=== PATIENT | female | born 1970 | race Caucasian/White ===

== ENCOUNTER 2017-01-15 19:43 | Emergency (ER) | payer MEDICAID ==
[~2017-01-15] VITALS: Ht 152.4 cm; Wt 87.1 kg
[2017-01-15 21:34] VITALS: BP 142/80
== END 2017-01-15 22:56 | disposition home or self-care (01) ==
LOC: ER 19:45
DX: S93.602A Unspecified sprain of left foot, initial encounter (principal); J45.909 Unspecified asthma, uncomplicated; J44.9 Chronic obstructive pulmonary disease, unspecified; Z88.0 Allergy status to penicillin; Z88.1 Allergy status to other antibiotic agents; Z88.2 Allergy status to sulfonamides; Z88.6 Allergy status to analgesic agent; Z88.8 Allergy status to other drugs, medicaments and biological substances; X58.XXXA Exposure to other specified factors, initial encounter; Y93.01 Activity, walking, marching and hiking; Y99.8 Other external cause status; Y92.89 Other specified places as the place of occurrence of the external cause
CPT/HCPCS: 73630

== ENCOUNTER 2017-10-19 14:08 | Emergency (ER) | payer MEDICAID ==
[~2017-10-19] VITALS: Ht 152.4 cm; Wt 88.9 kg
[2017-10-19] MEDS ORDERED: KETOROLAC TROMETH 60MG/2ML VIAL IM ONE (15:30)
[2017-10-19 17:26] VITALS: BP 141/88
== END 2017-10-19 17:31 | disposition home or self-care (01) ==
LOC: ER 14:08
DX: M54.5 Low back pain (principal); M79.1 Myalgia; R06.02 Shortness of breath; J44.9 Chronic obstructive pulmonary disease, unspecified; Z88.6 Allergy status to analgesic agent; Z88.8 Allergy status to other drugs, medicaments and biological substances; Z88.0 Allergy status to penicillin
CPT/HCPCS: 71101; 96372; 99284; J1885

== ENCOUNTER 2017-10-20 13:34 | Emergency (ER) | payer MEDICAID ==
[~2017-10-20] VITALS: Ht 152.4 cm; Wt 88.9 kg
[2017-10-20 14:53] VITALS: BP 128/82
[2017-10-20] MEDS ORDERED: methylPREDNISolone SOD SUCC 125 MG/2 ML VL IM ONE (15:15)
[2017-10-20] MEDS ORDERED: ONDANSETRON ODT 4 MG TAB PO ONE (15:15)
== END 2017-10-20 15:55 | disposition home or self-care (01) ==
LOC: ER 13:34
DX: T78.40XA Allergy, unspecified, initial encounter (principal); J44.9 Chronic obstructive pulmonary disease, unspecified; Z88.6 Allergy status to analgesic agent; Z88.0 Allergy status to penicillin; Z88.2 Allergy status to sulfonamides; Z88.1 Allergy status to other antibiotic agents
CPT/HCPCS: 96372; 99283; J2930; Q0162

== ENCOUNTER 2018-09-27 12:53 | Emergency (ER) | payer MEDICAID ==
[~2018-09-27] VITALS: Ht 152.4 cm; Wt 89.8 kg
[2018-09-27 16:00] VITALS: BP 160/82
== END 2018-09-27 16:07 | disposition home or self-care (01) ==
LOC: ER 13:02
DX: M48.07 Spinal stenosis, lumbosacral region (principal); J44.9 Chronic obstructive pulmonary disease, unspecified; Z90.710 Acquired absence of both cervix and uterus; Z88.0 Allergy status to penicillin; Z88.1 Allergy status to other antibiotic agents; Z88.2 Allergy status to sulfonamides; Z88.6 Allergy status to analgesic agent; Z88.8 Allergy status to other drugs, medicaments and biological substances
CPT/HCPCS: 70450; 72128; 72131

== ENCOUNTER 2021-07-05 14:47 | Emergency (ER) | payer MEDICAID ==
[~2021-07-05] VITALS: Ht 152.4 cm; Wt 95.3 kg
[2021-07-05 16:05] VITALS: BP 147/75
[2021-07-05] MEDS ORDERED: IBUPROFEN 800 MG TAB PO ONE (16:45)
[2021-07-05] MEDS ORDERED: IBUP800T27 PO (17:04)
== END 2021-07-05 17:33 | disposition home or self-care (01) ==
LOC: ER 14:58
DX: S90.31XA Contusion of right foot, initial encounter (principal); J44.9 Chronic obstructive pulmonary disease, unspecified; Z90.710 Acquired absence of both cervix and uterus; Z79.1 Long term (current) use of non-steroidal anti-inflammatories (NSAID); Z88.0 Allergy status to penicillin; Z88.1 Allergy status to other antibiotic agents; Z88.2 Allergy status to sulfonamides; Z88.8 Allergy status to other drugs, medicaments and biological substances; Y92.89 Other specified places as the place of occurrence of the external cause; Y99.8 Other external cause status
CPT/HCPCS: 73630

== ENCOUNTER 2023-06-15 22:22 | Emergency (ER) | payer MEDICAID ==
[~2023-06-15] VITALS: Ht 152.4 cm; Wt 95.0 kg
[~2023-06-15 22:22] MED LIST: IBUP-1456 PO
[2023-06-15] MEDS ORDERED: IPRATROPIUM BROM 0.5 MG/2.5ML INH SOL NEB ONE (22:45)
[2023-06-15] MEDS ORDERED: ALBUTEROL SULF 2.5 MG/0.5ML(0.5%) NEB SOLN NEB ONE (22:45)
[2023-06-16] MEDS ORDERED: PROM1SOL4 PO (01:58)
[2023-06-16] MEDS ORDERED: PRED20TA2 PO (01:58)
[2023-06-16] MEDS ORDERED: ALBU108A5 IN (01:59)
[2023-06-16] MEDS ORDERED: ALBUTEROL SULF 2.5 MG/0.5ML(0.5%) NEB SOLN NEB ONE (02:00)
[2023-06-16] MEDS ORDERED: IPRATROPIUM BROM 0.5 MG/2.5ML INH SOL NEB ONE (02:00)
[2023-06-16] MEDS ORDERED: DexAMETHasone SOD PHOS 10MG/1ML VIAL INJ IM ONE (02:00)
[2023-06-16 02:22] VITALS: BP 154/82; PULSE 84; RESP 20; TEMP 97.8; O2SAT 97
== END 2023-06-16 02:42 | disposition home or self-care (01) ==
LOC: ER 22:22
DX: J40 Bronchitis, not specified as acute or chronic (principal); J44.9 Chronic obstructive pulmonary disease, unspecified; Z90.710 Acquired absence of both cervix and uterus
CPT/HCPCS: 71045; 94640; 96372; 99284; J1100; J7644

== ENCOUNTER 2024-11-05 06:17 | Emergency (ER) | payer OTHER, MEDICAID ==
[~2024-11-05] VITALS: Ht 152.4 cm; Wt 79.0 kg
[~2024-11-05 06:17] MED LIST changes: +ALBU108A5 IN; +PRED20TA2 PO; +PROM1SOL4 PO
--- NOTE | 2024-11-05 06:42 | ED.PDOC ---
History of Present Illness HPI Comments 54-year-old female presents to the ER with prior medical history of hypertension, asthma, COPD, diabetes; surgical history of x2, hysterectomy, hernia removal, carpal tunnel surgery with a chief complaint of shortness a breath/chest pain. Patient reports on having cough with productive yellow phlegm for the past three days. Whenever the patient breathes in, the patient coughs. Patient in triage had a saturation level of 97% room air. Denies chills, fever, N/V/D. No other associated symptoms, modifiers, recent injuries or sick contacts present at this time. Chief Complaint: Shortness of Breath Time Seen by MD: 06:30 Primary Care Provider: THONG BENAVIDEZ Reviewed Notes: Nurses Notes, Medications, Allergies Allergies: Coded Allergies: Acetaminophen (Verified Allergy, Severe, 06/10/14) Codeine (Verified Allergy, Severe, 06/10/14) Hydrocodone (Verified Allergy, Severe, 06/10/14) Clindamycin (Verified Allergy, Unknown, 10/04/14) Levofloxacin (Verified Allergy, Unknown, 10/04/14) Penicillins (Verified Allergy, Unknown, 02/08/14) Sulfa Antibiotics (Verified Allergy, Unknown, 02/08/14) Sulfamethoxazole w/Trimethoprim (Verified Allergy, Unknown, 02/08/14) Home Meds Active Scripts Levofloxacin Hemihydrate (LEVOFLOXACIN) 500 Mg Tab, 500 MG PO DAILY for 7 Days, #7 MG Prov:VLADIMIR MORRIS MD 11/05/24 Prednisone (Prednisone) 20 Mg Tab, 20 MG PO DAILY for 5 Days, #5 MG Prov:VLADIMIR MORRIS MD 11/05/24 Albuterol Sulfate (Albuterol Sulfate Hfa) 108 Mcg/Act Aer, 2 PUFF IN Q4HPRN PRN, #1 INHALER 0 Refills 2 puffs inhaled every 4-6 hours as needed for SOB/cough symptoms Prov:KRISTIN AVENDANO CONTRACT LAW SPECIALIST 06/16/23 Prednisone (Prednisone) 20 Mg Tab, 40 MG PO DAILY for 5 Days, #10 TAB 0 Refills Prov:KRISTIN AVENDANO CONTRACT LAW SPECIALIST 06/16/23 Promethazine-Dm (Promethazine Dm 6.25-15 mg/5Ml) 1 Malia Malia, 5 ML PO Q6HPRN PRN, #120 ML 0 Refills Prov:KRISTIN AVENDANO CONTRACT LAW SPECIALIST 06/16/23 Ibuprofen (Ibuprofen) 800 Mg Tab, 800 MG PO Q8HP PRN for 10 Days, #30 TAB Prov:ELDA JOSE 07/05/21 Information Source: Patient Mode of Arrival: Ambulatory Severity: Moderate Timing: Days Duration: Since onset, Days Prehospital treatment: None Past Medical History PAST MEDICAL HISTORY: Asthma, COPD, DM, HTN Surgical History: (X2), Hysterectomy Surgical History (Other): Hernia removal, carpal tunnel surgery 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 History Family History Family History: Reviewed,noncontributory to illness, Unknown, Family hx of lung teresa Social History Smoker: Non-Smoker Alcohol: Unknown Drugs: Denies Drug Use Lives In: Home Constitutional: denies: chills, diaphoresis, fatigue, fever, malaise, sweats, weakness, others EENTM: denies: blurred vision, double vision, ear bleeding, ear discharge, ear drainage, ear pain, ear ringing, eye pain, eye redness, hearing loss, mouth pain, mouth swelling, nasal discharge, nose bleeding, nose congestion, nose pain, photophobia, tearing, throat pain, throat swelling, voice changes, others Respiratory: reports: cough, SOB at rest, shortness of breath; denies: hemoptysis, orthopnea, SOB with excertion, stridor, wheezing, others Cardiovascular: denies: chest pain, dizzy spells, diaphoresis, Dyspnea on exertion, edema, irregular heart beat, left arm pain, lightheadedness, palpitations, PND, syncope, others Gastrointestinal: denies: abdomen distended, abdominal pain, blood streaked bowels, constipated, diarrhea, dysphagia, difficulty swallowing, hematemesis, melena, nausea, poor appetite, poor fluid intake, rectal bleeding, rectal pain, vomiting, others Genitourinary: denies: abnormal vagina bleeding, burning, dyspareunia, dysuria, flank pain, frequency, hematuria, incontinence, pain, , vagina discharge, urgency, others Neurological: denies: dizziness, fainting, headache, left sided numbness, left sided weakness, numbness, paresthesia, pre-existing deficit, right sided numbness, right sided weakness, seizure, speech problems, tingling, tremors, weakness, others Musculoskeletal: denies: back pain, gout, joint pain, joint swelling, muscle pain, muscle stiffness, neck pain, others Integumetry: denies: bruises, change in color, change in hair/nails, dryness, laceration, lesions, lumps, rash, wounds, others Allergic/Immunocompromised: denies: Difficulty Healing, Frequent Infections, Hives, Itching, others Hematologic/Lymphatic: denies: anemia, blood clots, easy bleeding, easy bruising, swollen glands, others Endocrine: denies: excessive hunger, excessive sweating, excessive thirst, excessive urination, flushing, intolerance to cold, intolerance to heat, unexplained weight gain, unexplained weight loss, others Psychiatric: denies: anxiety, bipolar disorder, depression, hopeless, panic disorder, schizophrenia, sleepless, suicidal, others All Other Systems: Reviewed and Negative Physical Exam General Appearance: Moderate Distress, Normal HEENT: Normal ENT Inspection, Pharynx Normal, TMs Normal Neck: Full Range of Motion, Non-Tender, Normal, Normal Inspection Respiratory: Chest Non-Tender, Lungs Clear, No Accessory Muscle Use, No Respiratory Distress, Normal Breath Sounds Cardiovascular: No Edema, No JVD, No Murmur, No Gallop, Normal Peripheral Pulses, Regular Rate/Rhythm Breast Exam: Deferred Gastrointestinal: No Organomegaly, Non Tender, No Pulsatile Mass, Normal Bowel Sounds, Soft Genitalia: Deferred Pelvic: Deferred Rectal: Deferred Extremities: No calf tenderness, Normal capillary refill, Normal inspection, Normal range of motion, Non-tender, No pedal edema Musculoskeletal : Apperance: Normal Neurologic: Alert, materials scientist II-XII nml as Tested, No Motor Deficits, Normal Affect, Normal Mood, No Sensory Deficits Cerebellar Function: Normal Reflexes: Normal Skin: Dry, Normal Color, Warm Peripheral Pulses: 3+ Radial (R), 3+ Radial (L) Lymphatic: No Adenopathy Was a procedure done? Was a procedure done?: No EKG EKG : Pulse Rate (adult): 79 [place]: Normal Cardiac Rhythm: NSR Block: None Hypertrophy: None ST: Normal Differential Dx Considerations may include: Pneumonitis COPD X-Ray, Labs, Meds, VS Vital Signs Date Time Temp Pulse Resp B/P (MAP) Pulse Ox O2 Delivery O2 Flow Rate FiO2 11/05/24 07:46 97.8 77 18 118/79 (92) 96 97.8 11/05/24 07:46 77 18 96 Room Air 11/05/24 06:46 79 11/05/24 06:42 79 11/05/24 06:26 98.5 77 17 148/89 (108) 97 98.5 Lab Test 11/05/24 06:45 Range/Units Troponin I High Sensitivity < 3 L </=34 ng/L Patient alert. Complaining of shortness a breath. On examination she does have mild inflammation of the lung. Heart rate within normal limits. Saturation pristine on room air. No leg swelling. No sign of any distress. She does not smoke cigarettes. Clinical examination pristine. Chest x-ray reviewed mild inflammation. Possible pneumonitis. Was given prescription of prednisolone Levaquin antibiotic. No discoloration. Does not meet any criteria. Explained to the patient at 7:35 a.m. that she will be discharged with medication for possible pneumonitis. Was told to follow up with her primary care physician. Was told to come back if there is any problem. [place] [id number] Ph: [phone] DIAGNOSTIC IMAGING Diagnostic Imaging Report : [id number] Signed PATIENT: YANETH GUZMAN ACCT: [id number] UNIT: [id number] : 1970 LOC: ER ROOM / BED: / AGE / SEX: 54 / F ADM STATUS: REG ER SERVICE [id number] ORDERING PHYSICIAN: VLADIMIR MORRIS MD PROCEDURE(s): CXRP - CHEST PORTABLE REASON: sob ORDER NUMBER(s): [id number], ACCESSION NUMBER(s): [id number] CHEST RADIOGRAPH Indication: sob Technique: Single frontal view of the chest was obtained COMPARISON: XY CHEST PORTABLE on DOS: 06/15/23 FINDINGS: Lines and Tubes: None Lungs: Mild congestion Pleura: No effusion. No pneumothorax. Cardiomediastinal contours: Unremarkable Bones: Unremarkable IMPRESSION: Mild congestion ATED BY: CRISTOBAL RODRIGUEZ MD DICTATED DATE/TIME: 11/05/24 0706 SIGNED BY: CRISTOBAL RODRIGUEZ MD SIGNED DATE/TIME: 11/05/24 0706 CC: Time of 1ST Reevaluation: 07:00 Reevaluation 1ST: Improved Patient Education/Counseling: Diagnosis, Treatment, Prognosis Family Education/Counseling: No Family Present Departure 1 Departure Time of Disposition: 07:21 Impression: Primary Impression: Pneumonitis Disposition: 01 HOME / SELF CARE / HOMELESS Condition: Good e-Prescriptions Levofloxacin Hemihydrate (LEVOFLOXACIN) 500 Mg Tab 500 MG PO DAILY for 7 Days, #7 MG Prov: VLADIMIR MORRIS MD 11/05/24 Prednisone (Prednisone) 20 Mg Tab 20 MG PO DAILY for 5 Days, #5 MG Prov: VLADIMIR MORRIS MD 11/05/24 Discharged With: Self Critical Care Note Critical Care Time?: No Stability Stability form required: No Heart Score Heart Score: Heart Score Response (Comments) Value History Slightly Suspicious 0 EKG Normal 0 Age 45-64 1 Risk Factors 1 or 2 risk factors 1 Troponin Normal limit 0 Total 2 I personally scribed for VLADIMIR MORRIS MD ([email or web address]) on 11/05/24 at 06:42. Electronically submitted by Andrea Kim ([employer]). I personally scribed for VLADIMIR MORRIS MD ([email or web address]) on 11/05/24 at 07:57. Electronically submitted by Andrea Kim ([employer]). VLADIMIR MORRIS MD November 05, 2024 06:42
--- NOTE | 2024-11-05 07:09 | DVH ---
CHEST RADIOGRAPH Indication: sob Technique: Single frontal view of the chest was obtained COMPARISON: XY CHEST PORTABLE on DOS: 06/15/23 FINDINGS: Lines and Tubes: None Lungs: Mild congestion Pleura: No effusion. No pneumothorax. Cardiomediastinal contours: Unremarkable Bones: Unremarkable IMPRESSION: Mild congestion
[2024-11-05] MEDS ORDERED: PRED20TA2 PO (07:22)
[2024-11-05] MEDS ORDERED: LEVO500T91 PO (07:22)
[2024-11-05 07:46] VITALS: BP 118/79; PULSE 77; RESP 18; TEMP 97.8; O2SAT 96
--- NOTE | 2024-11-17 06:52 | ECG ---
[facility] Test Date: 2024-11-05 Test Time: 06:38:00 Pat Name: YANETH GUZMAN Department: ED Room: Gender: F Corporate Quality Engineer: : 1970 Requested By: VLADIMIR MORRIS Order Number: [id number] Reading MD: En Gonzalez Measurements Intervals Hatch Rate: 79 P: 15 LA: 147 QRS: 67 QRSD: 80 T: 50 QT: 371 QTc: 426 Interpretive Statements Sinus rhythm Electronically Signed On 11-17-2024 9:28:47 PDT by En Gonzalez Please click the below link to view image of tracing.
== END 2024-11-05 07:54 | disposition home or self-care (01) ==
LOC: ER 06:17
DX: J98.4 Other disorders of lung (principal); J44.9 Chronic obstructive pulmonary disease, unspecified; E11.9 Type 2 diabetes mellitus without complications; I10 Essential (primary) hypertension; Z79.52 Long term (current) use of systemic steroids; Z79.899 Other long term (current) drug therapy; Z90.710 Acquired absence of both cervix and uterus; Z98.890 Other specified postprocedural states; Z88.5 Allergy status to narcotic agent; Z88.2 Allergy status to sulfonamides; Z88.1 Allergy status to other antibiotic agents; Z88.0 Allergy status to penicillin; Z88.8 Allergy status to other drugs, medicaments and biological substances
CPT/HCPCS: 36415; 71045; 84484; 93005